=== PATIENT | male | born 1970 ===

== ENCOUNTER 2021-12-16 06:33 | Day surgery (SDC) | payer BC ==
[2021-12-16] MEDS ORDERED: Lidocaine 1% with EPINEPHrine 1:100,000 20 ML MDV ONE (06:54)
[2021-12-16] MEDS ORDERED: Bupivacaine 0.25%/EPINEPHrine 1:200,000 30 ML SDV ONE (06:55)
[2021-12-16] MEDS ORDERED: Bupivacaine 0.5% 30 ML SDV ONE (06:59)
[2021-12-16] MEDS ORDERED: Propofol 200 MG/20 ML SDV ONE (07:22)
[2021-12-16] MEDS ORDERED: Midazolam 1 MG/ML 2 ML SDV ONE (07:23)
[2021-12-16] MEDS ORDERED: fentaNYL 100 MCG/2 ML SDV ONE (07:23)
[2021-12-16] MEDS ORDERED: Lidocaine 1% 4 ML ONE (07:38)
[2021-12-16] MEDS ORDERED: Ketorolac 30 MG/ML SDV ONE (07:59)
== END 2021-12-16 08:45 | disposition home or self-care (01) ==
LOC: JD.SDS 06:33
PROVIDERS: ATTEND Surgery
DX: K64.5 Perianal venous thrombosis (principal); N39.0 Urinary tract infection, site not specified; F17.200 Nicotine dependence, unspecified, uncomplicated; Z98.890 Other specified postprocedural states
CPT/HCPCS: 46320; J1885; J2250; J2704; J3010; J3490; 00902